=== PATIENT | male | born 1985 | race Caucasian/White ===

== ENCOUNTER 2020-08-10 14:35 | Emergency (ER) | payer OTHER ==
[~2020-08-10] VITALS: Ht 167.6 cm; Wt 63.5 kg
[~2020-08-10 14:35] MED LIST: AMOCLA875 PO; AMOX500 PO; Bactrim Ds Tab1 EACH PO; CEPH500 PO; HYDACE5 PO; HYDMOR4 PO; IBUP600 PO; IBUP800 PO; NAPR500 PO; Naprosyn500 MG PO; PENVK500 PO; PROM25 PO; Peridex480 ML SS; TRAM50 PO; Ultram50 MG PO; Veetids 500500 MG PO
== END 2020-08-10 17:32 | disposition home or self-care (01) ==
LOC: ER 14:35
DX: R51.9 Headache, unspecified (principal); F17.210 Nicotine dependence, cigarettes, uncomplicated; Z88.5 Allergy status to narcotic agent
CPT/HCPCS: 96372-59; 99282-25; J1885; J2765